=== PATIENT | male | born 1950 | race African-American/Black ===

== ENCOUNTER 2018-07-21 14:53 | Observation (INO) ==
[2018-07-21] MEDS ORDERED: ASPIRIN 325 MG TABLET PO STA (15:15)
[2018-07-21] MEDS ORDERED: ENOXAPARIN 120 MG/0.8 ML SYRINGE SUBCUT STA (15:23)
[2018-07-21] MEDS ORDERED: NITROGLYCERIN 2% OINT 1 INCH/GM PACK TOP STA (15:23)
[2018-07-21 15:53] LABS: Basophils % 0.5 % (0.0-0.8); Eosinophils # 0.3 10*3/uL (0.0-0.87); Eosinophils % 3.8 % (0.00-10.9); Hematocrit 41.3 VOL% (42.0-52.0); Hemoglobin 13.1 GM/DL (14.0-18.0); Immature Granulocytes % 0.4 %; Immature Granulocytes Absolute 0.03 #; Lymphocytes # 2.3 10*3/uL (1.4-4.0); Lymphocytes % 29.6 % (21.2-54.2); Mean Corpuscular HGB Conc 31.7 GM/DL (32-36); Mean Corpuscular Hemoglobin 25 PG (27-34); Mean Corpuscular Volume 79.3 FL (87-102); Monocytes # 0.5 10*3/uL (0.11-0.8); Monocytes % 6.5 % (1.7-12.7); Neutrophils # 4.5 10*3/uL (1.4-7.4); Neutrophils % 59.2 % (38.7-73.9); Platelet Count 229 T/CUMM (130-400); Red Blood Count 5.21 MC/CUMM (3.8-5.5); Red Cell Distribution Width 13.9 % (9.3-17.3); White Blood Count 7.6 T/CUMM (4-12)
[2018-07-21 16:00] LABS: PT Patient Result 11.1 SECS
[2018-07-21 16:11] LABS: Calcium 9.7 MG/DL (8.5-10.1); Osmolality,Calculated 299.5 MOS/KG (273-304); Potassium 3.5 MMOL/L (3.5-5.1)
[2018-07-21] MEDS ORDERED: INSULIN LISPRO 100 UNIT/ML SUBCUT STA (16:21)
[2018-07-21] MEDS ORDERED: ZALEPLON 5 MG CAPSULE PO PRN (16:26)
[2018-07-21] MEDS ORDERED: POTASSIUM CHLORIDE 20 MEQ TABLET PO PRN (16:26)
[2018-07-21] MEDS ORDERED: DOCUSATE SODIUM 100 MG CAPSULE PO PRN (16:26)
[2018-07-21] MEDS ORDERED: diphenhydrAMINE CAP 25 MG CAPSULE PO PRN (16:26)
[2018-07-21] MEDS ORDERED: MAGNESIUM SULF RIDER 2 GM in PREMIX 1 EACH IV PRN (16:26)
[2018-07-21] MEDS ORDERED: ONDANSETRON 4 MG/2 ML VIAL IV PRN (16:26)
[2018-07-21] MEDS ORDERED: guaiFENesin/DM ER 600-30 MG TABLET PO PRN (16:26)
[2018-07-21] MEDS ORDERED: BISACODYL 5 MG TABLET PO PRN (16:26)
[2018-07-21] MEDS ORDERED: ACETAMINOPHEN 325 MG TABLET PO PRN (16:26)
[2018-07-21] MEDS ORDERED: MAGNESIUM SULF RIDER 4 GM in PREMIX 1 EACH IV PRN (16:26)
[2018-07-21] MEDS ORDERED: METOPROLOL TARTRATE 5 MG/5 ML VIAL IV PRN (17:33)
[2018-07-21] MEDS ORDERED: INSULIN GLARGINE 100 UNIT/ML SUBCUT PRN (17:33)
[2018-07-21] MEDS: PANTOPRAZOLE 40 MG TABLET PO SCH (17:45)
[2018-07-21] MEDS ORDERED: GLUCAGON 1 MG VIAL IM PRN (18:19)
[2018-07-21] MEDS ORDERED: DEXTROSE 50% 25 GM/50 ML SYRINGE IV PRN (18:19)
[2018-07-21] MEDS: NITROGLYCERIN 2% OINT 1 INCH/GM PACK TOP SCH (18:24)
[2018-07-21 19:48] LABS: CKMB % 1.5 %
[2018-07-21 19:54] LABS: Troponin I 0.121 NG/ML (0.00-0.045)
[2018-07-21] MEDS: ALLOPURINOL 100 MG TABLET PO SCH (21:20)
[2018-07-21] MEDS: DOCUSATE SODIUM 100 MG CAPSULE PO SCH (21:21)
[2018-07-21] MEDS: INSULIN LISPRO 100 UNIT/ML SUBCUT SCH (21:24)
[2018-07-21] MEDS: CARVEDILOL 25 MG TABLET PO SCH (21:25)
[2018-07-21 22:15] LABS: CKMB % 1.6 %
[2018-07-21 22:18] LABS: Troponin I 0.107 NG/ML (0.00-0.045)
[2018-07-21] MEDS ORDERED: SODIUM PHOSPHATE ENEMA 133 ML BOTTLE RECTAL ONE ×2 (23:05→23:07)
[2018-07-22] MEDS: NITROGLYCERIN 2% OINT 1 INCH/GM PACK TOP SCH ×4 (01:19→18:52)
[2018-07-22 05:10] LABS: Basophils % 0.6 % (0.0-0.8); Eosinophils # 0.3 10*3/uL (0.0-0.87); Eosinophils % 4.5 % (0.00-10.9); Hematocrit 39.9 VOL% (42.0-52.0); Hemoglobin 12.7 GM/DL (14.0-18.0); Immature Granulocytes % 0.6 %; Immature Granulocytes Absolute 0.04 #; Lymphocytes % 28.1 % (21.2-54.2); Mean Corpuscular HGB Conc 31.8 GM/DL (32-36); Mean Corpuscular Hemoglobin 25 PG (27-34); Mean Corpuscular Volume 79.2 FL (87-102); Mean Platelet Volume 10.2 FL (9.6-12.0); Monocytes # 0.5 10*3/uL (0.11-0.8); Monocytes % 6.9 % (1.7-12.7); Neutrophils # 4.2 10*3/uL (1.4-7.4); Neutrophils % 59.3 % (38.7-73.9); Platelet Count 221 T/CUMM (130-400); Red Blood Count 5.04 MC/CUMM (3.8-5.5); Red Cell Distribution Width 13.9 % (9.3-17.3); White Blood Count 7.1 T/CUMM (4-12)
[2018-07-22 06:22] LABS: Calcium 9.1 MG/DL (8.5-10.1); Osmolality,Calculated 292.3 MOS/KG (273-304); Potassium 3.4 MMOL/L (3.5-5.1); Risk Ratio 5.88; VLDL CHOLESTEROL 22.4 MG/DL
[2018-07-22] MEDS ORDERED: POTASSIUM CHLORIDE RIDER 10 MEQ in PREMIX 1 EACH IV PRN (07:54)
[2018-07-22] MEDS ORDERED: DIAZEPAM 5 MG TABLET PO ONE (11:00)
[2018-07-22] MEDS ORDERED: diphenhydrAMINE CAP 25 MG CAPSULE PO ONE (11:00)
[2018-07-22] MEDS ORDERED: HEPARIN/NACL 0.9% 2 UNITS/ML 1,000 ML IV ONE (11:14)
[2018-07-22] MEDS ORDERED: LIDOCAINE 1% 20 ML VIAL ONE (11:14)
[2018-07-22] MEDS: ASPIRIN EC 81 MG TABLET PO SCH (11:28)
[2018-07-22] MEDS: CARVEDILOL 25 MG TABLET PO SCH ×2 (11:28→22:14)
[2018-07-22] MEDS: OLMESARTAN 20 MG TABLET PO SCH (11:28)
[2018-07-22] MEDS: DOCUSATE SODIUM 100 MG CAPSULE PO SCH ×2 (11:28→22:14)
[2018-07-22] MEDS: ENOXAPARIN 40 MG/0.4 ML SYRINGE SUBCUT SCH (11:29)
[2018-07-22] MEDS: PANTOPRAZOLE 40 MG TABLET PO SCH (11:29)
[2018-07-22] MEDS: SODIUM CHLORIDE 0.9% 1,000 ML IV SCH ×3 (11:34→22:15)
[2018-07-22] MEDS: CLOPIDOGREL 75 MG TABLET PO SCH (11:34)
[2018-07-22] MEDS ORDERED: VERAPAMIL 5 MG/2 ML VIAL ONE (11:44)
[2018-07-22] MEDS ORDERED: NITROGLYCERIN DRIP 50 MG/250 ML BOTTLE IV ONE (11:44)
[2018-07-22] MEDS: INSULIN LISPRO 100 UNIT/ML SUBCUT SCH ×3 (11:47→23:27)
[2018-07-22] MEDS ORDERED: HYDROmorphone 2 MG/1 ML VIAL ONE (11:48)
[2018-07-22] MEDS ORDERED: MIDAZOLAM 2 MG/2 ML VIAL ONE (11:48)
[2018-07-22] MEDS ORDERED: BIVALIRUDIN 250 MG VIAL IV ONE (12:17)
[2018-07-22] MEDS ORDERED: CLOPIDOGREL 300 MG TABLET ONE (12:27)
[2018-07-22] MEDS ORDERED: LABETALOL 20 MG/4 ML SYRINGE IV ONE (12:29)
[2018-07-22] MEDS: ALLOPURINOL 100 MG TABLET PO SCH (22:14)
[2018-07-23] MEDS: NITROGLYCERIN 2% OINT 1 INCH/GM PACK TOP SCH ×2 (00:05→06:00)
[2018-07-23 05:26] LABS: Basophils % 0.6 % (0.0-0.8); Eosinophils # 0.2 10*3/uL (0.0-0.87); Eosinophils % 3.7 % (0.00-10.9); Hematocrit 40.4 VOL% (42.0-52.0); Hemoglobin 12.6 GM/DL (14.0-18.0); Immature Granulocytes % 0.3 %; Immature Granulocytes Absolute 0.02 #; Lymphocytes # 1.8 10*3/uL (1.4-4.0); Lymphocytes % 28.7 % (21.2-54.2); Mean Corpuscular HGB Conc 31.2 GM/DL (32-36); Mean Corpuscular Hemoglobin 25 PG (27-34); Mean Corpuscular Volume 80.2 FL (87-102); Mean Platelet Volume 10.3 FL (9.6-12.0); Monocytes # 0.5 10*3/uL (0.11-0.8); Monocytes % 7.9 % (1.7-12.7); Neutrophils # 3.8 10*3/uL (1.4-7.4); Neutrophils % 58.8 % (38.7-73.9); Platelet Count 235 T/CUMM (130-400); Red Blood Count 5.04 MC/CUMM (3.8-5.5); White Blood Count 6.4 T/CUMM (4-12)
[2018-07-23 05:54] LABS: Calcium 8.3 MG/DL (8.5-10.1); Osmolality,Calculated 286.4 MOS/KG (273-304); Potassium 3.4 MMOL/L (3.5-5.1)
[2018-07-23 06:01] LABS: Troponin I 0.079 NG/ML (0.00-0.045)
[2018-07-23 06:28] LABS: Calcium 8.3 MG/DL (8.5-10.1); Osmolality,Calculated 286.4 MOS/KG (273-304); Potassium 3.4 MMOL/L (3.5-5.1)
[2018-07-23] MEDS: CARVEDILOL 25 MG TABLET PO SCH (09:33)
[2018-07-23] MEDS: DOCUSATE SODIUM 100 MG CAPSULE PO SCH (09:33)
[2018-07-23] MEDS: OLMESARTAN 20 MG TABLET PO SCH (09:33)
[2018-07-23] MEDS: PANTOPRAZOLE 40 MG TABLET PO SCH (09:34)
[2018-07-23] MEDS: CLOPIDOGREL 75 MG TABLET PO SCH (09:34)
[2018-07-23] MEDS: ASPIRIN EC 81 MG TABLET PO SCH (09:34)
[2018-07-23] MEDS: INSULIN LISPRO 100 UNIT/ML SUBCUT SCH (11:23)
[2018-07-23] MEDS: ENOXAPARIN 40 MG/0.4 ML SYRINGE SUBCUT SCH (11:26)
[2018-07-23 12:42] VITALS: BP 146/93
== END 2018-07-23 13:00 | disposition home or self-care (01) ==
LOC: N.EDINP 14:53 → N.ED 14:53 → N.2W 16:56 → N.TELEN 18:00
PROVIDERS: ADMIT Internal Medicine Cardiovascular Disease; ATTEND Internal Medicine Cardiovascular Disease

== ENCOUNTER 2019-05-29 18:50 | Inpatient (IN) ==
[2019-05-29] MEDS ORDERED: PANTOPRAZOLE INJ 80 MG in SODIUM CHLORIDE 0.9% 100 ML IV STA (19:23)
[2019-05-29] MEDS ORDERED: SODIUM CHLORIDE 0.9% 1,000 ML IV STA (19:23)
[2019-05-29 20:24] LABS: Basophils % 0.3 % (0.0-0.8); Eosinophils # 0.1 10*3/uL (0.0-0.87); Eosinophils % 0.7 % (0.00-10.9); Hematocrit 26.2 VOL% (42.0-52.0); Hemoglobin 8.5 GM/DL (14.0-18.0); Immature Granulocytes % 0.8 %; Immature Granulocytes Absolute 0.07 #; Lymphocytes % 22.1 % (21.2-54.2); Mean Corpuscular HGB Conc 32.4 GM/DL (32-36); Mean Corpuscular Volume 81.6 FL (87-102); Mean Platelet Volume 10.4 FL (9.6-12.0); Monocytes % 5.3 % (1.7-12.7); Neutrophils % 70.8 % (38.7-73.9); Platelet Count 184 T/CUMM (130-400); Red Blood Count 3.21 MC/CUMM (3.8-5.5); Red Cell Distribution Width 13.9 % (9.3-17.3)
[2019-05-29] MEDS ORDERED: PANTOPRAZOLE 40 MG VIAL IV ONE ×2 (20:31→23:49)
[2019-05-29] MEDS ORDERED: SODIUM CHLORIDE 0.9% 0 ML IV ONE (20:32)
[2019-05-29 20:48] LABS: Alanine Aminotransferase 22 U/L (16-61); Albumin 2.6 G/DL (3.4-5.0); Alkaline Phosphatase 58 U/L (45-117); Aspartate Amino Transferase 10 U/L (0-37); Bilirubin,Total < 0.39 MG/DL (0.2-1.0); Blood Urea Nitrogen 93 MG/DL (7-18); Calcium 8.4 MG/DL (8.5-10.1); Estimated Glom Filtration Rate 45 ML/MIN; Glucose 409 MG/DL (74-106); Osmolality,Calculated 315.1 MOS/KG (273-304); Total Protein 5.5 G/DL (6.4-8.3)
[2019-05-29 20:49] LABS: Troponin I 0.122 NG/ML (0.00-0.045)
[2019-05-29] MEDS ORDERED: ONDANSETRON 4 MG/2 ML VIAL IV PRN (22:31)
[2019-05-29] MEDS ORDERED: ALLOPURINOL 100 MG TABLET PO PRN (22:59)
[2019-05-29] MEDS ORDERED: GLUCAGON 1 MG VIAL IM PRN (23:07)
[2019-05-29] MEDS ORDERED: DEXTROSE 50% 25 GM/50 ML VIAL IV PRN (23:07)
[2019-05-30] MEDS: PANTOPRAZOLE INJ 200 MG in SODIUM CHLORIDE 0.9% 250 ML IV SCH (00:23)
[2019-05-30] MEDS: SODIUM CHLORIDE 0.9% 1,000 ML IV SCH ×3 (01:58→23:30)
[2019-05-30] MEDS: INSULIN LISPRO 100 UNIT/ML SUBCUT SCH ×5 (02:23→21:45)
[2019-05-30 03:31] LABS: Basophils % 0.4 % (0.0-0.8); Eosinophils # 0.2 10*3/uL (0.0-0.87); Hematocrit 23.5 VOL% (42.0-52.0); Hemoglobin 7.5 GM/DL (14.0-18.0); Immature Granulocytes % 0.6 %; Immature Granulocytes Absolute 0.05 #; Lymphocytes # 2.6 10*3/uL (1.4-4.0); Lymphocytes % 31.3 % (21.2-54.2); Mean Corpuscular HGB Conc 31.9 GM/DL (32-36); Mean Corpuscular Volume 81.9 FL (87-102); Monocytes % 5.9 % (1.7-12.7); Neutrophils % 59.8 % (38.7-73.9); Platelet Count 161 T/CUMM (130-400); Red Blood Count 2.87 MC/CUMM (3.8-5.5); White Blood Count 8.2 T/CUMM (4-12)
[2019-05-30 03:39] LABS: Alanine Aminotransferase 20 U/L (16-61); Albumin 2.6 G/DL (3.4-5.0); Alkaline Phosphatase 53 U/L (45-117); Aspartate Amino Transferase 14 U/L (0-37); Bilirubin,Total < 0.39 MG/DL (0.2-1.0); Blood Urea Nitrogen 91 MG/DL (7-18); Calcium 8.1 MG/DL (8.5-10.1); Estimated Glom Filtration Rate 48 ML/MIN; Glucose 314 MG/DL (74-106); Osmolality,Calculated 316.5 MOS/KG (273-304); Total Protein 4.8 G/DL (6.4-8.3)
[2019-05-30] MEDS ORDERED: SODIUM CHLORIDE 0.9% 1,000 ML IV PRN (04:05)
[2019-05-30 14:00] LABS: CKMB % 3.8 %
[2019-05-30 14:14] LABS: Troponin I 1.48 NG/ML (0.00-0.045)
[2019-05-30 15:35] LABS: CKMB % 3.9 %
[2019-05-30 15:41] LABS: Troponin I 1.32 NG/ML (0.00-0.045)
[2019-05-30] MEDS: RANOLAZINE 500 MG TABLET PO SCH ×2 (17:15→21:45)
[2019-05-30] MEDS: GABAPENTIN 100 MG CAPSULE PO SCH (17:15)
[2019-05-30] MEDS: CHOLECALCIFEROL 5,000 UNIT TABLET PO SCH (17:15)
[2019-05-30] MEDS: ASPIRIN EC 81 MG TABLET PO SCH (17:15)
[2019-05-30] MEDS: ISOSORBIDE MONONITRATE 30 MG TABLET PO SCH (17:15)
[2019-05-30 18:48] LABS: CKMB % 3.8 %
[2019-05-30 18:50] LABS: Troponin I 1.65 NG/ML (0.00-0.045)
[2019-05-30] MEDS: carvediloL 3.125 MG TABLET PO SCH (21:45)
[2019-05-30] MEDS: ROSUVASTATIN 20 MG TABLET PO SCH (21:45)
[2019-05-31] MEDS: PANTOPRAZOLE INJ 200 MG in SODIUM CHLORIDE 0.9% 250 ML IV SCH (02:38)
[2019-05-31 05:54] LABS: Basophils % 0.4 % (0.0-0.8); Eosinophils # 0.2 10*3/uL (0.0-0.87); Eosinophils % 2.7 % (0.00-10.9); Hematocrit 23.7 VOL% (42.0-52.0); Hemoglobin 7.5 GM/DL (14.0-18.0); Immature Granulocytes % 0.7 %; Immature Granulocytes Absolute 0.05 #; Lymphocytes # 1.6 10*3/uL (1.4-4.0); Lymphocytes % 21.9 % (21.2-54.2); Mean Corpuscular HGB Conc 31.6 GM/DL (32-36); Mean Corpuscular Volume 86.5 FL (87-102); Mean Platelet Volume 10.2 FL (9.6-12.0); Monocytes % 5.2 % (1.7-12.7); Neutrophils % 69.1 % (38.7-73.9); Platelet Count 143 T/CUMM (130-400); Red Blood Count 2.74 MC/CUMM (3.8-5.5); Red Cell Distribution Width 14.5 % (9.3-17.3); White Blood Count 7.5 T/CUMM (4-12)
[2019-05-31 06:20] LABS: Albumin 2.4 G/DL (3.4-5.0); Bilirubin,Total 0.5 MG/DL (0.2-1.0); Calcium 8.5 MG/DL (8.5-10.1); Osmolality,Calculated 319.4 MOS/KG (273-304); Total Protein 4.9 G/DL (6.4-8.3)
[2019-05-31] MEDS ORDERED: LACTATED RINGERS 1,000 ML IV SCH (07:00)
[2019-05-31] MEDS ORDERED: SODIUM CHLORIDE 0.9% 1,000 ML IV PRN (07:49)
[2019-05-31] MEDS ORDERED: FUROSEMIDE 20 MG/2 ML VIAL IV PRN (07:49)
[2019-05-31] MEDS ORDERED: LIDOCAINE 100 MG/5 ML SYRINGE ONE (09:00)
[2019-05-31] MEDS ORDERED: ETOMIDATE 20 MG/10 ML VIAL IV ONE (09:00)
[2019-05-31] MEDS: INSULIN LISPRO 100 UNIT/ML SUBCUT SCH ×5 (09:49→22:16)
[2019-05-31] MEDS: carvediloL 3.125 MG TABLET PO SCH ×2 (09:54→22:16)
[2019-05-31] MEDS: ISOSORBIDE MONONITRATE 30 MG TABLET PO SCH (09:54)
[2019-05-31] MEDS: ASPIRIN EC 81 MG TABLET PO SCH (09:54)
[2019-05-31] MEDS: GABAPENTIN 100 MG CAPSULE PO SCH (09:54)
[2019-05-31] MEDS: CHOLECALCIFEROL 5,000 UNIT TABLET PO SCH (09:55)
[2019-05-31] MEDS: RANOLAZINE 500 MG TABLET PO SCH ×2 (09:55→22:16)
[2019-05-31] MEDS: CLOPIDOGREL 75 MG TABLET PO SCH (11:43)
[2019-05-31] MEDS: SODIUM CHLORIDE 0.9% 1,000 ML IV SCH (11:53)
[2019-05-31] MEDS ORDERED: ACETAMINOPHEN 325 MG TABLET PO PRN (14:21)
[2019-05-31] MEDS ORDERED: PHENOL 1.4% THROAT SPRAY 177 ML BOTTLE PO PRN (14:21)
[2019-05-31 17:27] LABS: Hematocrit 26.1 VOL% (42.0-52.0); Hemoglobin 8.5 GM/DL (14.0-18.0)
[2019-05-31] MEDS: ROSUVASTATIN 20 MG TABLET PO SCH (22:15)
[2019-05-31] MEDS: PANTOPRAZOLE 40 MG TABLET PO SCH (22:16)
[2019-06-01 05:35] LABS: Basophils % 0.5 % (0.0-0.8); Eosinophils # 0.2 10*3/uL (0.0-0.87); Eosinophils % 3.5 % (0.00-10.9); Hematocrit 25.3 VOL% (42.0-52.0); Hemoglobin 8.2 GM/DL (14.0-18.0); Immature Granulocytes % 0.7 %; Immature Granulocytes Absolute 0.04 #; Lymphocytes # 1.7 10*3/uL (1.4-4.0); Mean Corpuscular HGB Conc 32.4 GM/DL (32-36); Mean Corpuscular Volume 86.1 FL (87-102); Mean Platelet Volume 10.4 FL (9.6-12.0); Monocytes % 5.9 % (1.7-12.7); Neutrophils % 60.4 % (38.7-73.9); Platelet Count 136 T/CUMM (130-400); Red Blood Count 2.94 MC/CUMM (3.8-5.5); Red Cell Distribution Width 14.6 % (9.3-17.3); White Blood Count 5.9 T/CUMM (4-12)
[2019-06-01 06:16] LABS: Albumin 2.5 G/DL (3.4-5.0); Bilirubin,Total 0.5 MG/DL (0.2-1.0); Calcium 8.2 MG/DL (8.5-10.1); Osmolality,Calculated 301.8 MOS/KG (273-304); Total Protein 5.1 G/DL (6.4-8.3)
[2019-06-01] MEDS: INSULIN LISPRO 100 UNIT/ML SUBCUT SCH ×2 (08:57→14:18)
[2019-06-01] MEDS: ASPIRIN EC 81 MG TABLET PO SCH (08:58)
[2019-06-01] MEDS: PANTOPRAZOLE 40 MG TABLET PO SCH (08:58)
[2019-06-01] MEDS: carvediloL 3.125 MG TABLET PO SCH (08:58)
[2019-06-01] MEDS: ISOSORBIDE MONONITRATE 30 MG TABLET PO SCH (08:59)
[2019-06-01] MEDS: CLOPIDOGREL 75 MG TABLET PO SCH (08:59)
[2019-06-01] MEDS: GABAPENTIN 100 MG CAPSULE PO SCH (08:59)
[2019-06-01] MEDS: CHOLECALCIFEROL 5,000 UNIT TABLET PO SCH (08:59)
[2019-06-01] MEDS: RANOLAZINE 500 MG TABLET PO SCH (09:00)
[2019-06-01] MEDS ORDERED: MAGNESIUM SULF RIDER 2 GM in PREMIX 1 EACH IV PRN (11:14)
[2019-06-01] MEDS ORDERED: MAGNESIUM SULF RIDER 4 GM in PREMIX 1 EACH IV PRN (11:14)
[2019-06-01 12:16] VITALS: BP 128/70
== END 2019-06-01 14:17 | disposition home or self-care (01) | DRG 377 ==
LOC: N.ED 18:50 → N.EDINP 22:31 → N.TELES 05-30 00:47
PROVIDERS: ADMIT Internal Medicine; ATTEND Internal Medicine